=== PATIENT | female | born 1985 | race Caucasian/White ===

== ENCOUNTER 2017-12-30 14:48 | Emergency (ER) | payer OTHER ==
[~2017-12-30] VITALS: Ht 157.5 cm; Wt 77.1 kg
[2017-12-30 17:23] LABS: BASOPHILS ABSOLUTE AUTO 0.03 K/mm3 (0.00-0.23); BASOPHILS PERCENT AUTO 0 % (0-2); EOSINOPHILS ABSOLUTE AUTO 0.14 K/mm3 (0.00-0.68); EOSINOPHILS PERCENT AUTO 2 % (0-6); Hematocrit 40.8 % (33.0-51.0); Hemoglobin 13.6 g/dL (11.5-16.0); IMMATURE GRAN ABSOLUTE AUTO 0.05 K/mm3 (0.00-0.10); IMMATURE GRAN PERCENT AUTO 1 % (0-1); LYMPHOCYTES ABSOLUTE AUTO 1.29 K/mm3 (0.84-5.20); LYMPHOCYTES PERCENT AUTO 16 % (21-46); MONOCYTES ABSOLUTE AUTO 0.44 K/mm3 (0.16-1.47); MONOCYTES PERCENT AUTO 5 % (4-13); Mean Corpuscular HGB 30.2 pg (26.0-34.0); Mean Corpuscular HGB Conc 33.3 g/dL (31.5-36.5); Mean Corpuscular Volume 91 fL (80-100); Mean Platelet Volume 9.7 fL (9.1-12.4); NEUTROPHILS ABSOLUTE AUTO 6.18 K/mm3 (1.96-9.15); NEUTROPHILS PERCENT AUTO 76 % (41-73); Platelet Count 314 K/mm3 (150-400); RDW Coefficient Variation 13.2 % (11.7-14.2); RDW Standard Deviation 43.8 fL (35.1-46.3); Red Blood Cell Count 4.51 M/mm3 (3.80-5.20); White Blood Cell Count 8.13 K/mm3 (4.00-11.30)
[2017-12-30 17:48] LABS: Anion Gap 6 mmol/L (6-16); Blood Urea Nitrogen 16 mg/dL (8-24); CO2, Blood 27 mmol/L (21-32); Chloride, Blood 107 mmol/L (98-108); Creatinine, Blood 0.67 mg/dL (0.40-1.00); Glomerular Filtration Rate >60 (60-); Glucose, Blood 85 mg/dL (70-99); Potassium, Blood 3.6 mmol/L (3.5-5.5); Sodium, Blood 140 mmol/L (136-145)
== END 2017-12-30 18:42 | disposition home or self-care (01) ==
LOC: ER 14:48
PROVIDERS: Emergency Medicine
DX: R55 Syncope and collapse (principal)
CPT/HCPCS: 36415; 80048; 84703; 85025; 93005; 93010; 96360; 99283; J7030

== ENCOUNTER → 2019-07-26 | Outpatient (CLI) | payer SELFPAY ==
[2019-07-26 18:45] LABS: BASOPHILS ABSOLUTE AUTO 0.03 K/mm3 (0.00-0.23); BASOPHILS PERCENT AUTO 1 % (0-2); EOSINOPHILS ABSOLUTE AUTO 0.21 K/mm3 (0.00-0.68); EOSINOPHILS PERCENT AUTO 3 % (0-6); Hematocrit 36.2 % (33.0-51.0); Hemoglobin 12.3 g/dL (11.5-16.0); IMMATURE GRAN ABSOLUTE AUTO 0.02 K/mm3 (0.00-0.10); IMMATURE GRAN PERCENT AUTO 0 % (0-1); LYMPHOCYTES ABSOLUTE AUTO 1.53 K/mm3 (0.84-5.20); LYMPHOCYTES PERCENT AUTO 23 % (21-46); MONOCYTES ABSOLUTE AUTO 0.43 K/mm3 (0.16-1.47); MONOCYTES PERCENT AUTO 7 % (4-13); Mean Corpuscular HGB 30.2 pg (26.0-34.0); Mean Corpuscular Volume 89 fL (80-100); Mean Platelet Volume 9.6 fL (9.1-12.4); NEUTROPHILS ABSOLUTE AUTO 4.34 K/mm3 (1.96-9.15); NEUTROPHILS PERCENT AUTO 66 % (41-73); Platelet Count 278 K/mm3 (150-400); RDW Coefficient Variation 12.8 % (11.7-14.2); RDW Standard Deviation 41.9 fL (35.1-46.3); Red Blood Cell Count 4.07 M/mm3 (3.80-5.20); White Blood Cell Count 6.56 K/mm3 (4.00-11.30)
== END | disposition home or self-care (01) ==
LOC: LAB SHORT 18:42 → LAB EV 18:42
PROVIDERS: Physician Assistant Surgical
DX: N93.9 Abnormal uterine and vaginal bleeding, unspecified (principal)
CPT/HCPCS: 85025

== ENCOUNTER → 2020-07-12 | Outpatient (CLI) | payer OTHER ==
[2020-07-13 16:11] LABS: HPV 16 Negative (Negative); HPV 18 Negative (Negative); HPV OTHER HR TYPES Negative (Negative)
== END | disposition home or self-care (01) ==
LOC: LAB SHORT 14:43 → LAB 14:43
PROVIDERS: Obstetrics & Gynecology
DX: Z01.419 Encounter for gynecological examination (general) (routine) without abnormal findings (principal)
CPT/HCPCS: 87624; G0123

== ENCOUNTER → 2022-08-20 | Outpatient (CLI) | payer OTHER ==
[2022-08-20 11:41] LABS: BASOPHILS ABSOLUTE AUTO 0.03 K/mm3 (0.00-0.23); BASOPHILS PERCENT AUTO 0 % (0-2); EOSINOPHILS ABSOLUTE AUTO 0.07 K/mm3 (0.00-0.68); EOSINOPHILS PERCENT AUTO 1 % (0-6); Hematocrit 32.4 % (33.0-51.0); Hemoglobin 10.8 g/dL (11.5-16.0); IMMATURE GRAN ABSOLUTE AUTO 0.08 K/mm3 (0.00-0.10); IMMATURE GRAN PERCENT AUTO 1 % (0-1); LYMPHOCYTES ABSOLUTE AUTO 0.71 K/mm3 (0.84-5.20); LYMPHOCYTES PERCENT AUTO 5 % (21-46); MONOCYTES ABSOLUTE AUTO 0.48 K/mm3 (0.16-1.47); MONOCYTES PERCENT AUTO 3 % (4-13); Mean Corpuscular HGB Conc 33.3 g/dL (31.5-36.5); Mean Corpuscular Volume 90 fL (80-100); Mean Platelet Volume 9.1 fL (9.1-12.4); NEUTROPHILS ABSOLUTE AUTO 12.91 K/mm3 (1.96-9.15); NEUTROPHILS PERCENT AUTO 90 % (41-73); Platelet Count 315 K/mm3 (150-400); RDW Coefficient Variation 13.2 % (11.7-14.2); RDW Standard Deviation 43.7 fL (35.1-46.3); White Blood Cell Count 14.28 K/mm3 (4.00-11.30)
[2022-08-20 11:44] LABS: Bun/Creatinine Ratio 14.5 (12.0-20.0); Calcium, Blood 8.9 mg/dL (8.5-10.1); Creatinine, Blood 0.62 mg/dL (0.40-1.00); Potassium, Blood 3.6 mmol/L (3.5-5.5)
== END ==
LOC: LAB 11:36 → LAB SHORT 11:36
PROVIDERS: Physician Assistant Medical
DX: R10.30 Lower abdominal pain, unspecified (principal)
CPT/HCPCS: 80048; 85025

== ENCOUNTER 2022-08-22 15:20 | Emergency (ER) | payer OTHER ==
[~2022-08-22] VITALS: Ht 154.9 cm; Wt 79.4 kg
[2022-08-22 16:13] LABS: BASOPHILS ABSOLUTE AUTO 0.03 K/mm3 (0.00-0.23); BASOPHILS PERCENT AUTO 0 % (0-2); EOSINOPHILS ABSOLUTE AUTO 0.28 K/mm3 (0.00-0.68); EOSINOPHILS PERCENT AUTO 4 % (0-6); Hemoglobin 10.1 g/dL (11.5-16.0); IMMATURE GRAN ABSOLUTE AUTO 0.02 K/mm3 (0.00-0.10); IMMATURE GRAN PERCENT AUTO 0 % (0-1); LYMPHOCYTES ABSOLUTE AUTO 1.09 K/mm3 (0.84-5.20); LYMPHOCYTES PERCENT AUTO 16 % (21-46); MONOCYTES ABSOLUTE AUTO 0.43 K/mm3 (0.16-1.47); MONOCYTES PERCENT AUTO 6 % (4-13); Mean Corpuscular HGB 29.8 pg (26.0-34.0); Mean Corpuscular HGB Conc 32.6 g/dL (31.5-36.5); Mean Corpuscular Volume 91 fL (80-100); Mean Platelet Volume 9.3 fL (9.1-12.4); NEUTROPHILS ABSOLUTE AUTO 5.13 K/mm3 (1.96-9.15); NEUTROPHILS PERCENT AUTO 74 % (41-73); Platelet Count 362 K/mm3 (150-400); RDW Coefficient Variation 13.1 % (11.7-14.2); Red Blood Cell Count 3.39 M/mm3 (3.80-5.20); White Blood Cell Count 6.98 K/mm3 (4.00-11.30)
[2022-08-22 16:34] LABS: Albumin, Blood 3.7 g/dL (3.4-5.0); Albumin/Globulin Ratio 1.1 (0.8-1.8); Bilirubin, Total 0.2 mg/dL (0.1-1.0); Bun/Creatinine Ratio 24.5 (12.0-20.0); Calcium, Blood 9.1 mg/dL (8.5-10.1); Creatinine, Blood 0.53 mg/dL (0.40-1.00); Globulin, Blood 3.4 g/dL (2.2-4.0); Potassium, Blood 3.8 mmol/L (3.5-5.5); Total Protein, Blood 7.1 g/dL (6.4-8.2)
== END 2022-08-22 19:38 | disposition home or self-care (01) ==
LOC: ER 15:20
PROVIDERS: Physician Assistant
DX: D25.9 Leiomyoma of uterus, unspecified (principal); N93.9 Abnormal uterine and vaginal bleeding, unspecified
CPT/HCPCS: 36415; 80053; 84703; 85025; 93005; 93010; A9270

== ENCOUNTER → 2022-11-26 | Outpatient (CLI) | payer OTHER ==
[2022-11-27 15:11] LABS: HPV 16 Negative (Negative); HPV 18 Negative (Negative); HPV OTHER HR TYPES Negative (Negative)
== END | disposition home or self-care (01) ==
LOC: LAB SHORT 14:06 → LAB 14:06
PROVIDERS: Obstetrics & Gynecology
DX: Z01.419 Encounter for gynecological examination (general) (routine) without abnormal findings (principal)
CPT/HCPCS: 87624; G0145

== ENCOUNTER → 2022-11-26 | Outpatient (CLI) | payer OTHER | END | disposition home or self-care (01) | LOC: PLD 15:25 → LAB SHORT 15:25 | DX: N84.0 Polyp of corpus uteri (principal); N92.4 Excessive bleeding in the premenopausal period | CPT/HCPCS: 88305 ==

== ENCOUNTER 2023-02-10 10:57 | Day surgery (SDC) | payer OTHER ==
[2023-02-10] VITALS (16 sets, daily range): BP systolic 96–135; BP diastolic 35–96
[~2023-02-10] VITALS: Ht 154.9 cm; Wt 80.1 kg
[2023-02-10] MEDS ORDERED: LOSA25 PO (11:58)
[2023-02-10] MEDS ORDERED: LORATADINE10 M1 PO (11:58)
[2023-02-10] MEDS ORDERED: MONT10T PO (11:59)
[2023-02-10] MEDS ORDERED: NORGESTIMATE-E1 EAC2 PO (12:00)
--- NOTE | 2023-02-10 12:44 | NUR ---
Patient up to Ambulate independently. Gait steady. History, Chart, Medications and Allergies reviewed before start of procedure.Patient confirms NPO status and agrees with scheduled surgery. Pre-Op teaching done. Pt verbalizes understanding.
--- NOTE | 2023-02-10 19:20 | NUR ---
END OF SHIFT SUMMARY: PATIENT ARRIVED TO UNIT WITH HIGH LEVELS OF PAIN (PATIENT REPORTING 8/10). PATIENT SHOWING VISUAL SIGNS OF HIGH LEVELS OF PAIN (SHARP AND CRAMPING). MEDICATED PER PRN MEDICATIONS, PO AND IV. ASSISTED WITH REPOSITION AND PROVIDED WITH A K-PAD. PATIENT REPORTED MINIMAL RELIEF FOR ABOUT [address] LOUIE. NEW ORDERS RECEIVED AND ENTERED. PATIENT MEDICATED WITH NEW ORDERS AND ABLE TO ACHIEVE A 3/10. PATIENT RESTING COMFORTABLY AT END OF SHIFT. PATIENT DENIES NAUSEA, BUT ALSO REPORTS MINIMAL INTEREST IN FOOD. PATIENT ABLE TO TOLERATE WATER AND A FEW BITES OF JELLO WITHOUT ABDOMINAL DISTRESS OR NAUSEA. PATIENT'S IMAN AT BEDSIDE. HE IS SUPPORTIVE OF THE PATIENT. PATIENT'S LAP SITES ARE C/D/I. NO DRAINAGE NOTED. INCISIONS ARE CLOSED. ABDOMEN IS SOFT AND TENDER. HYPOACTIVE BOWEL SOUNDS.
[2023-02-11 00:46] VITALS: BP 101/66
[2023-02-11 03:10] VITALS: BP 109/73
--- NOTE | 2023-02-11 05:24 | NUR ---
SHIFT SUMMARY POD #1 LAP HYSTERECTOMY PT IS TOLERATING PO INTAKE, VOIDING WNL, MINIMAL PINK TINGED DISCHARGE NOTED ON FAUZIA PADS, PASSING FLATUS. LAP SITES X4 C/D/I W/DERMABOND, VSS, ON RA, PAIN MANAGED PER EMAR & HEAT PAD. PT CALLS FOR ASSISTANCE PRN, HAS BEEN INDEPENDENT IN ROOM, CALL LIGHT IN REACH, WCTM & REPORT TO ONCOMING RN.
[2023-02-11 07:59] VITALS: BP 104/68
== END 2023-02-11 10:00 | disposition home or self-care (01) ==
LOC: ORSCMMR 10:57 → EDSTATUS 12:15 → SURS 12:15 → ORSCMMR 02-11 10:00
PROVIDERS: Obstetrics & Gynecology
PROC: 0UT9FZZ Resection of Uterus, Via Natural or Artificial Opening With Percutaneous Endoscopic Assistance (ICD-10-PCS; principal; 2023-02-10 13:30)
PROC: 0UT7FZZ Resection of Bilateral Fallopian Tubes, Via Natural or Artificial Opening With Percutaneous Endoscopic Assistance (ICD-10-PCS; principal; 2023-02-10 13:30)
PROC: 8E0W4CZ Robotic Assisted Procedure of Trunk Region, Percutaneous Endoscopic Approach (ICD-10-PCS; principal; 2023-02-10 13:30)
DX: N92.1 Excessive and frequent menstruation with irregular cycle (principal); D50.9 Iron deficiency anemia, unspecified; D25.0 Submucous leiomyoma of uterus; N80.329 Endometriosis of the posterior cul-de-sac, unspecified depth; J45.909 Unspecified asthma, uncomplicated; I10 Essential (primary) hypertension; N80.30 Endometriosis of pelvic peritoneum, unspecified; Z79.51 Long term (current) use of inhaled steroids; Z79.899 Other long term (current) drug therapy; F41.9 Anxiety disorder, unspecified
CPT/HCPCS: 58571; S2900; 88307; A9270; J0690; J1100; J1885; J2250; J2370; J2405; J2704; J2795; J3010; J7120